=== PATIENT | female | born 1990 | race Caucasian/White ===

== ENCOUNTER 2019-12-21 18:29 | Emergency (ER) | payer OTHER ==
[~2019-12-21] VITALS: Ht 165.1 cm; Wt 92.5 kg
[2019-12-21 18:33] VITALS: BP 128/77; Ht 165.1 cm; Wt 92.5 kg
== END 2019-12-21 19:01 | disposition home or self-care (01) ==
LOC: ED 18:29
DX: T17.1XXA Foreign body in nostril, initial encounter (principal); W45.8XXA Other foreign body or object entering through skin, initial encounter; Y93.89 Activity, other specified; Y92.89 Other specified places as the place of occurrence of the external cause; Y99.8 Other external cause status

== ENCOUNTER 2020-06-06 08:54 | Emergency (ER) | payer BC, SELFPAY ==
[~2020-06-06] VITALS: Ht 162.6 cm; Wt 93.9 kg
[2020-06-06 08:56] VITALS: Ht 162.6 cm; Wt 93.9 kg
[2020-06-06 09:30] VITALS: BP 153/95
== END 2020-06-06 09:30 | disposition home or self-care (01) ==
LOC: ED 08:54
DX: R19.7 Diarrhea, unspecified (principal); R06.02 Shortness of breath; R11.0 Nausea; R53.83 Other fatigue; M79.10 Myalgia, unspecified site; Z20.828 Contact with and (suspected) exposure to other viral communicable diseases
CPT/HCPCS: J7030; U0003-CS